=== PATIENT | male | born 1940 | race Caucasian/White ===

== ENCOUNTER 2022-02-16 18:21 | Observation (INO) | payer MEDICARE ==
[2022-02-16 19:39] LABS: #Lymphocytes 1.3 thou/uL (1.20-3.40); #Monocytes 0.4 thou/uL (0.11-0.59); #Neutrophils 4.3 thou/uL (1.40-6.50); %Basophils 0.4 % (0.0-1.0); %Eosinophils 0.5 % (0.0-10.0); %Lymphocytes 21.4 % (21.0-51.0); %Monocytes 6.9 % (0.0-10.0); %Neutrophils 70.8 % (42.0-75.0); Hemoglobin 15.9 g/dL (14.0-18.0); Mean Corpuscular Hemoglobin 30.3 pg (27.0-31.0); Mean Corpuscular Volume 94.7 fL (78.0-98.0); Mean Platelet Volume 8.3 fL (7.4-10.4); Platelet Count 188 thou/uL (130-400); RBC Distribution Width 14.3 % (11.5-14.5); Red Blood Cell (RBC) Count 5.24 mill/uL (4.70-6.10); White Blood Cell (WBC) Count 6.1 thou/uL (4.8-10.8)
[2022-02-16 20:05] LABS: ALT (SGPT) 18 U/L (8-55); AST (SGOT) 35 U/L (5-34); Albumin 3.5 g/dL (3.4-4.8); Alkaline Phosphatase 72 U/L (40-110); Anion Gap 18 mmol/L (10-20); BUN (Urea Nitrogen) 36 mg/dL (8.4-25.7); Bilirubin, Total 1.2 mg/dL (0.2-1.2); Calc. Creatinine Clearance 0 mL/min (70-130); Calcium 9.7 mg/dL (7.8-10.44); Carbon Dioxide 17 mmol/L (23-31); Chloride 102 mmol/L (98-107); Estimated GFR 24; Globulin 3.3 g/dL (2.4-3.5); Glucose 99 mg/dL (83-110); Lipase 35 U/L (8-78); Potassium 4.2 mmol/L (3.5-5.1); Protein, Total 6.8 g/dL (5.8-8.1); Sodium 133 mmol/L (136-145)
[2022-02-16] MEDS ORDERED: Metoprolol Tartrate 25 MG TAB ONE (22:15)
[2022-02-16 22:36] LABS: SARS-CoV-2 NAA Rapid Test DETECTED (NotDetected)
[2022-02-16] MEDS ORDERED: Ondansetron PF 4 MG/2 ML Vial IVP PRN (23:45)
[2022-02-16] MEDS ORDERED: Ondansetron ODT 4 MG TAB SL PRN (23:45)
[2022-02-16] MEDS ORDERED: Sodium Chloride 0.9% 1,000 ML IV SCH (23:45)
[2022-02-16] MEDS ORDERED: Acetaminophen 325 MG TAB PO PRN (23:45)
[2022-02-17 01:42] VITALS: BMI 28.6
[2022-02-17] MEDS ORDERED: Labetalol HCl 100 MG/20 ML VIAL SLOW IVP PRN (05:10)
[2022-02-17] MEDS ORDERED: Sodium Chloride 0.9% 1,000 ML IV SCH (05:11)
[2022-02-17] MEDS: Labetalol HCl 100 MG/20 ML VIAL SLOW IVP PRN ×2 (05:32→15:26)
[2022-02-17 07:35] LABS: #Lymphocytes 1.3 thou/uL (1.20-3.40); #Monocytes 0.3 thou/uL (0.11-0.59); #Neutrophils 2.4 thou/uL (1.40-6.50); %Basophils 0.1 % (0.0-1.0); %Eosinophils 0.6 % (0.0-10.0); %Lymphocytes 31.8 % (21.0-51.0); %Monocytes 7.8 % (0.0-10.0); %Neutrophils 59.8 % (42.0-75.0); Hemoglobin 13.8 g/dL (14.0-18.0); Mean Corpuscular HGB CONC 30.5 g/dL (32.0-36.0); Mean Corpuscular Hemoglobin 29.6 pg (27.0-31.0); Mean Corpuscular Volume 97.1 fL (78.0-98.0); Mean Platelet Volume 8.4 fL (7.4-10.4); Platelet Count 150 thou/uL (130-400); RBC Distribution Width 14.3 % (11.5-14.5); Red Blood Cell (RBC) Count 4.67 mill/uL (4.70-6.10)
[2022-02-17 07:46] LABS: Anion Gap 13 mmol/L (10-20); BUN (Urea Nitrogen) 31 mg/dL (8.4-25.7); Calc. Creatinine Clearance 36 mL/min (70-130); Calcium 8.9 mg/dL (7.8-10.44); Carbon Dioxide 20 mmol/L (23-31); Chloride 109 mmol/L (98-107); Estimated GFR 28; Glucose 85 mg/dL (83-110); Potassium 3.8 mmol/L (3.5-5.1); Sodium 138 mmol/L (136-145)
[2022-02-17] MEDS ORDERED: Senokot S 8.6-50 MG TAB PO PRN (08:33)
[2022-02-17 08:48] LABS: CRP (Inflammatory) 0.97 mg/dL (= or < 0.5); Magnesium 2.2 mg/dL (1.6-2.6)
[2022-02-17] MEDS: Zinc Sulfate 220 MG CAP PO SCH (09:37)
[2022-02-17] MEDS: Ascorbic Acid 500 mg Chewable Tablet PO SCH (09:37)
[2022-02-17] MEDS: Metoprolol Tartrate 100 MG TAB PO SCH ×2 (09:37→21:13)
[2022-02-17 16:37] LABS: Bacteria/HPF 3+ HPF (None Seen); Bilirubin Negative (Negative); Blood, Urine 2+ (Negative); Clarity Turbid (Clear); Glucose, Urine (Dipstick) Normal (Negative); Ketone, Urine Negative (Negative); Leukocyte 500 Leu/uL (Negative); Nitrite Negative (Negative); Protein, Urine (Dipstick) 50 mg/dL (Neg-Trace); RBC/HPF 21-50 HPF (0-3); Specific Gravity, Urine 1.009 (1.002-1.036); Squamous Epithelial 0-3 HPF (0-3); Urobilinogen Normal mg/dL (Less than 2); WBC/HPF Greater than 50 HPF (0-3); pH, Urine 5.5 (5.0-9.0)
[2022-02-17] MEDS ORDERED: hydrALAZINE 20 MG/ML VIAL SLOW IVP SCH (19:15)
[2022-02-17] MEDS ORDERED: Ciprofloxacin 500 MG TAB PO SCH (20:00)
[2022-02-17] MEDS ORDERED: Famotidine 20 MG TAB PO SCH (21:00)
[2022-02-17] MEDS ORDERED: Rivaroxaban 15 MG TAB PO SCH (21:00)
[2022-02-17] MEDS: Ciprofloxacin 500 MG TAB PO SCH (21:12)
[2022-02-18] MEDS: Ciprofloxacin 500 MG TAB PO SCH (05:01)
[2022-02-18 05:16] LABS: #Eosinphils 0.1 thou/uL (0.0-0.7); #Monocytes 0.4 thou/uL (0.11-0.59); %Basophils 0.3 % (0.0-1.0); %Eosinophils 1.2 % (0.0-10.0); %Lymphocytes 22.5 % (21.0-51.0); %Monocytes 9.9 % (0.0-10.0); %Neutrophils 66.1 % (42.0-75.0); Hemoglobin 14.5 g/dL (14.0-18.0); Mean Corpuscular HGB CONC 31.6 g/dL (32.0-36.0); Mean Corpuscular Hemoglobin 30.2 pg (27.0-31.0); Mean Corpuscular Volume 95.7 fL (78.0-98.0); Mean Platelet Volume 8.1 fL (7.4-10.4); Platelet Count 149 thou/uL (130-400); RBC Distribution Width 14.3 % (11.5-14.5); Red Blood Cell (RBC) Count 4.79 mill/uL (4.70-6.10); White Blood Cell (WBC) Count 4.5 thou/uL (4.8-10.8)
[2022-02-18 05:38] LABS: Anion Gap 11 mmol/L (10-20); BUN (Urea Nitrogen) 31 mg/dL (8.4-25.7); Calc. Creatinine Clearance 37 mL/min (70-130); Carbon Dioxide 19 mmol/L (23-31); Chloride 109 mmol/L (98-107); Estimated GFR 29; Glucose 94 mg/dL (83-110); Potassium 3.7 mmol/L (3.5-5.1); Sodium 135 mmol/L (136-145)
[2022-02-18] MEDS ORDERED: NIFEdipine XL 30 MG TAB PO SCH (07:45)
[2022-02-18] MEDS: Labetalol HCl 100 MG/20 ML VIAL SLOW IVP PRN (09:34)
[2022-02-18] MEDS: Zinc Sulfate 220 MG CAP PO SCH (09:38)
[2022-02-18] MEDS: Metoprolol Tartrate 100 MG TAB PO SCH (09:38)
[2022-02-18] MEDS: Ascorbic Acid 500 mg Chewable Tablet PO SCH (09:38)
[2022-02-18 17:20] VITALS: BP 164/80; TEMP 97.3
[2022-02-19] MEDS ORDERED: NIFEdipine XL 30 MG TAB PO SCH (09:00)
== END 2022-02-18 18:32 | disposition home or self-care (01) ==
LOC: ERS 18:21 → 2SW 22:44
PROVIDERS: ADMIT Internal Medicine; ATTEND Internal Medicine
DX: U07.1 COVID-19 (principal); N17.9 Acute kidney failure, unspecified; E87.2 Acidosis; N39.0 Urinary tract infection, site not specified; E87.1 Hypo-osmolality and hyponatremia; I10 Essential (primary) hypertension; I48.20 Chronic atrial fibrillation, unspecified; I77.810 Thoracic aortic ectasia; M10.9 Gout, unspecified; Q60.0 Renal agenesis, unilateral; Z87.891 Personal history of nicotine dependence; Z79.01 Long term (current) use of anticoagulants; Z79.2 Long term (current) use of antibiotics; Z79.899 Other long term (current) drug therapy
CPT/HCPCS: 0240U; 71045; 80048 ×2; 80053; 81001; 83690; 83735; 84484; 85025 ×3; 86140; 93005; 96361; 96374; 96375; G0378 ×3; 36415; J0360; J7050